=== PATIENT | male | born 2005 | race Caucasian/White ===

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

== ENCOUNTER 2025-08-03 14:02 | Emergency (ER) | payer MEDICAID, SELFPAY ==
--- OUTSIDE RECORDS SUMMARY | 2025-07-30 15:00 | XMS_ITS | Encounter Summary ---
Author Organization [employer] Address [address] [facility] [address] [place] [address] Care Team Providers Care Book Sewing Machine Operator Name Role Phone Unavailable Primary Care Provider Unavailabl e Reason for Visit * Reason Comments Filling Encounter Details Date Type Department Care Team (Late st Contact Info) Description 07/30/2025 3:00 PM EDT Office Visit [facility] ADULT DENTAL [address] [place] [address] Hi Carranza DDS [address] [place] [address] Dental caries (Primary Dx) Social History Tobacco Use Types Packs/Day Years Used Date Smoking Tobacco: Former Cigarettes Passive Smoke Exposure: Never Smokeless Tobacco: Former Alcohol Use Standard Drinks/Week Comments Defer 0 (1 standard drink = 0.6 oz pur e alcohol) Sex and Gender Information Value Date Recorded Sex Assigned at Male 06/12/2025 8:23 AM EDT Legal Sex Male 10:40 AM EDT Gender Identity Male 06/12/2025 8:23 AM EDT Sexual Orientation Straight 06/12/2025 8: 23 AM EDT documented as of this encounter Last Filed Vital Signs Vital Sign Reading Time Taken Comments Blood Pressure 126/72 07/30/2025 2:49 PM EDT Pulse - - Temperature - - Respiratory Rate - - Oxygen Saturation - - Inhaled Oxygen Concentration - - Weight - - Height - - Body Mass Index - - documented in this encounter Progress Notes * Hi Carranza DDS - 07/30/2025 3:00 PM EDT Patient ID: Dio Quezada is a 20 y.o. male. Time Out: Timeout Date: 07/30/25, Timeout Time: 1448 (composite #14) Location: [facility] Tooth: Maxilla and #14 Procedure: [facility] Verified the above with patient, welder assistant, and provider. Confirmed via patient's chart, intraorally and by radiographs. Interventional Radiologist: not applicable Chief Complaint Patient presents with Filling Medical Hx: Vitals: Blood pressure 126/72. Medications, Med Hx reviewed with patient and updated in chart. Consent Obtained: The risks, benefits, indications, potential complications, and alternatives were explained to the patient and informed consent was obtained with good understanding. Treatment Provided: Dental procedures in this visit D2391 - RESIN-BASED COMPOSITE - 1 SURF, POSTERIOR 14 M D9450 - CASE PRESENTATION, DETAILED AND EXTENSIVE TREATMENT PLANNING Diagnosis: Caries Topical: 20% Benzocaine Anesthesia: 2% Lidocaine (Xylocaine) w/ 1:100,000 epinephrine Number of Cartridges: 1 Injection Type: Intrapapillary injection Confirmed profound anesthesia. Isolation: cotton rolls and high speed suction Prep: All caries removed and Preparation finalized Matrix: Sectional Matrix and wedge Etch: 37% Phosphoric Acid Etch Desensitizer: Gluma Liner/Base: None Banks: I-Banks Adventist Material: Paradigm Composite Shade: A3 Pt. Needs to improve STILLAGUAMISH / folssing Polished. Occlusion & contacts verified. Patient satisfied with comfort and esthetics. Patient tolerated procedure well. Post-operative instructions were given. Patient departed alert, oriented, and in stable condition. NV: 6 mos recall Air/Ocean Export Clerk: Shantal Jackson Dentist: Hi Carranza DDS documented in this encounter Plan of Treatment Upcoming Encounters Date Type Department Care Team (Late st Contact Info) Description 02/13/2026 8:00 AM EDT Office Visit [facility] ADULT DENTAL [address] [place] [address] Sharon Reis Scheduled Orders Name Type Priority Associated Diagnoses Orde r Schedule PROPHYLAXIS - ADULT Dental Routine 1 Occ urrences starting 07/30/2025 documented as of this encounter Procedures Procedure Name Priority Date/Time Associated Diagnosis Comments 14 M RESIN-BASED COMPOSITE - 1 SURF, POSTERIOR Routine 07/30/2025 3:00 PM EDT CASE PRESENTATION, DETAILED AND EXTENSIVE TREATMENT PLANNING Routine 07/30/2025 3:00 PM EDT documented in this encounter Visit Diagnoses Diagnosis Dental caries- Primary Unspecified dental caries documented in this encounter
[2025-08-03 14:05] VITALS: BP 140/78; PULSE 59; RESP 16; TEMP 36.8; O2SAT 98; BMI 32.3
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
--- OUTSIDE RECORDS SUMMARY | 2025-08-03 14:57 | XMS_ITS | Clinical Summary ---
Author Organization [employer] [facility] Address [address] [facility] [address] [place] [address] Care Team Providers Care Delivery Engineer Name Role Phone Unavailable Primary Care Provider Unavailabl e Allergies No known active allergies Medications acetaminophen (Tylenol 8 Hour) 650 MG ER tablet Take 1 tablet (650 mg) by mouth every 8 (eight) hours if needed for mild pain. Do not crush, chew, or split. 30 tablet Active Additional Information Patient not taking.Reported on 07/30/2025 ibuprofen 600 MG tablet Take 1 tablet (600 mg) by mouth 3 times daily. 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 Encounters Date Type Department Care Team Description 07/30/2025 3:00 PM EDT Office Visit [facility] ADULT DENTAL [address] [place] [phone] Hi Carranza DDS Dental caries (Primary Dx) 07/03/2025 Telephone [facility] MEDICINE [address] [place] [phone] Santhosh Jones MD 06/13/2025 Telephone [facility] INS ENROLLMENT [address] [place] [phone] Tara Pearson MD 06/12/2025 1:00 PM EDT Office Visit [facility] ADULT DENTAL [address] [place] [phone] Hi Carranza DDS Pain (Primary Dx); Symptomatic reversible pulpitis; Localized adult periodontitis 06/12/2025 Travel from Last 3 Months Social History Tobacco Use Types Packs/Day Years Used Date Smoking Tobacco: Former Cigarettes Passive Smoke Exposure: Never Smokeless Tobacco: Former Tobacco Cessation:Counseling Given: No Alcohol Use Standard Drinks/Week Comments Defer 0 (1 standard drink = 0.6 oz pur e alcohol) Sex and Gender Information Value Date Recorded Sex Assigned at Male 06/12/2025 8:23 AM EDT Legal Sex Male 10:40 AM EDT Gender Identity Male 06/12/2025 8:23 AM EDT Sexual Orientation Straight 06/12/2025 8: 23 AM EDT Last Filed Vital Signs Vital Sign Reading Time Taken Comments Blood Pressure 126/72 07/30/2025 2:49 PM EDT Pulse - - Temperature - - Respiratory Rate - - Oxygen Saturation - - Inhaled Oxygen Concentration - - Weight - - Height - - Body Mass Index - - Plan of Treatment Upcoming Encounters Date Type Department Care Team (Late st Contact Info) Description 02/13/2026 8:00 AM EDT Office Visit [facility] ADULT DENTAL [address] [place] [address] Sharon Reis Health Maintenance Due Date Last Done Comments Chlamydia and Gonorrhea Screening 2003 Dental Oral Exam 2003 Dental Prophylaxis 2003 Dental X-Ray: Bitewings 2003 Depression Screening 2003 HIV Screening 2003 SDOH Screening 2003 Disability Screening 2003 IPV Vaccines (4 of 4 - 4-dose series) 2007 04/20/2004, 2003, 2003 DTaP/Tdap/Td Vaccines (5 - Tdap) 2014 03/02/2005, 01/28/2004, 2003, Additional history exists Alcohol/Substance Use Screening 2015 Family Planning (PISQ) 2018 Meningococcal B Vaccine (1 of 2 - Standard) 2019 Hepatitis C Screening 2021 Hepatitis A Vaccines (1 of 2 - Risk 2-dose series) 2022 COVID-19 Vaccine (1 - season) 2025 Influenza Vaccine (#1) 2025 , 08/22/2019, 08/19/2017, Additional history exists Tobacco Screening 07/30/2026 07/30/2025 Dental X-Ray: Full Mouth 06/13/2028 06/12/2025 Zoster Vaccines (1 of 2) 2053 RSV Patients and Patients Aged 60 years or older (1 - 1-dose 75+ series) 2078 Hepatitis B Vaccines Completed 04/20/2004, 01/28/2004, 2003 HIB Vaccines Completed 09/14/2004, 12/2003, 2003, Additional history exists Pneumococcal Vaccine: Pediatrics (0 to 5 Years) and At-Risk Patients (6 to 49) Years Aged Out 09/14/2004, 01/28/2004, 2003, Additional history exists No longer eligible based on patient's age to complete this topic HPV Vaccines Completed 08/18/2016, 07/18/2015 Meningococcal Vaccine Completed 08/22/2019 RSV under 20 months Aged Out No longe r eligible based on patient's age to complete this topic Rotavirus Vaccines Aged Out No longer eligible based on patient's age to complete this topic Procedures Procedure Name Priority Date/Time Associated Diagnosis Comments CASE PRESENTATION, DETAILED AND EXTENSIVE TREATMENT PLANNING Routine 07/30/2025 3:00 PM EDT 12 M RESIN-BASED COMPOSITE - 1 SURF, POSTERIOR Routine 07/30/2025 3:00 PM EDT INTRAORAL - PERIAPICAL FIRST RADIOGRAPHIC IMAGE Routine 06/12/2025 1:00 PM EDT DENTAL CASE MANAGEMENT - PATIENT EDUCATION TO IMPROVE ORAL HEALTH LITERACY Routine 06/12/2025 1:00 PM EDT PANORAMIC RADIOGRAPHIC IMAGE Routine 06/12/2025 1:00 PM EDT LIMITED ORAL EVALUATION - PROBLEM FOCUSED Routine 06/12/2025 1:00 PM EDT from Last [address] [place], [place] [address] [facility] STAND ADULT
--- OUTSIDE RECORDS SUMMARY | 2025-08-03 14:57 | XMS_ITS | Encounter Summary ---
Author Organization [facility] Address [address] [place] [address] Phone Care Team Providers Care Contract Administrative Assistant Name Role Phone Marisabel Robert MD Primary Care Provider [phone] Encounter Details Date Type Department Care Team (Late st Contact Info) Description 07/14/2017 Conversion Encounter [facility] [address] [place] [address] Social History Tobacco Use Types Packs/Day Years Used Date Smoking Tobacco: Never Assessed Sex and Gender Information Value Date Recorded Sex Assigned at Not on file Legal Sex Male 4:11 PM EDT Gender Identity Not on file Sexual Orientation Not on file documented as of this encounter Plan of Treatment Not on file documented as of this encounter Visit Diagnoses Not on filedocumented in this encounter Care Teams Contract Administrative Assistant Relationship Specialty Start Date End Date Marisabel Robert MD [address] [place] [address] PCP - General 07/08/17 01/05/23 documented as of this encounter
--- OUTSIDE RECORDS SUMMARY | 2025-08-03 14:57 | XMS_ITS | Clinical Summary ---
Author Organization [facility] Address [address] [place] [phone] Phone Care Team Providers Care Presentation Designer Name Role Phone Unavailable Primary Care Provider Unavailabl e Immunizations Immunization Administration Dates Next Due DTaP 5 03/02/2005,01/28/2004,2003 ,2003 Hep B, ped/adol 04/20/2004,01/28/2004,2003 Hib (PRP-T) 09/14/2004,01/28/2004,2003 ,2003 IPV 04/20/2004,2003,2003 MMR 06/22/2004 Pneumococcal Conjugate 09/14/2004,01/28/2004,11/2002,2003 Varicella 06/22/2004 Family History Relation Name Status Comments Father Alive Father: Alive a nd well Maternal Grandfather Materna l grandfather: Diabetes mellitus, Hepatitis C Maternal Grandmother Materna l grandmother: Diabetes mellitus, Hepatitis C Mother Alive Mother: Asthma Paternal Grandmother Paterna l grandmother: Diabetes mellitus Social History Tobacco Use Types Packs/Day Years Used Date Smoking Tobacco: Never Assessed Sex and Gender Information Value Date Recorded Sex Assigned at Not on file Legal Sex Male 4:11 PM EDT Gender Identity Not on file Sexual Orientation Not on file Plan of Treatment Health Maintenance Due Date Last Done Comments IPV Vaccines (4 of 4 - 4-dose series) 2007 04/20/2004, 2003, 2003 Varicella Vaccines (2 of 2 - 2-dose childhood series) 2007 06/22/2004 DTaP,Tdap,and Td Vaccines (5 - Tdap) 2014 03/02/2005, 01/28/2004, 2003, Additional history exists HPV Vaccines (1 - Male 3-dose series) 2018 Men B Vaccine (1 of 2 - Standard) 2019 Influenza Vaccines (#1) 2025 COVID-19 Vaccine ( - season) 2025 Hepatitis B Vaccines Completed 04/20/2004, 01/28/2004, 2003 MMR Vaccines Completed 06/22/2004 HIB Vaccines Completed 09/14/2004, 12/2003, 2003, Additional history exists Pneumococcal Vaccine Completed 09/14/2004, 01/28/2004, 2003, Additional history exists Hepatitis A Vaccines Aged Out No long er eligible based on patient's age to complete this topic Meningococcal Vaccine Aged Out No justin vitaliy eligible based on patient's age to complete this topic
[2025-08-03 15:39] VITALS: BP 140/78; PULSE 59; RESP 16; TEMP 36.8; O2SAT 98
== END 2025-08-03 15:39 | disposition home or self-care (01) ==
PROVIDERS: Emergency Provider Emergency Medicine; PCP Physician Assistant
DX: H83.3X1 Noise effects on right inner ear (principal); H92.01 Otalgia, right ear
CPT/HCPCS: 99282; 99284